=== PATIENT | male | born 1975 ===

== ENCOUNTER 2018-03-14 12:51 | Emergency (ER) | payer BC ==
[2018-03-14 13:43] VITALS: BP 135/71
--- NOTE | 2018-03-14 14:29 | UC ---
Shortness of Breath HPI - HPI Summary HPI Summary: Patient is a 42-year-old male that presents here with a three-day history of dyspepsia.. The last 2-3 nights he has been experiencing some chest tightness and decreased air movement. Rest night he woke marked shortness of breath. His mother is an ICU nurse and checked his pulse ox was 94%. He used his inhaler and was able to get back to sleep. In the past 6 weeks he has had severe seasonal allergic rhinitis. He is currently on his second course of steroids. He has had a history of GERD as well as a small hiatal hernia. He is not on any GI medicines at present. - History of Current Complaint Chief Complaint: UCChestPain Stated Complaint: CHEST/SOB COMPLAINT (ONLY IN PM) Time Seen by Provider: 03/14/18 13:46 Hx Obtained From: Patient Onset/Duration: Gradual Onset, Lasting Days Timing: Intermittent Episodes Lasting: - hours Current Severity: None Aggrevating Factors: Allergens - ?, Recumbent Position Alleviating Factors: Bronchodilators Associated Signs & Symptoms: Positive: Cough (Nonproductive) - Allergy/Home Medications Allergies/Adverse Reactions: Allergies Allergy/AdvReac Type Severity Reaction Status Date / Time ibuprofen Allergy See Comment Verified 03/14/18 13:27 Home Medications: Home Medications Albuterol HFA INHALER* [Ventolin HFA Inhaler*] 1 - 2 puff INH Q4H PRN 03/14/18 [ History Confirmed 03/14/18] diphenhydrAMINE HCl [Benadryl Allergy 25 MG CAP] 25 mg PO Q8H PRN 03/14/18 [ History Confirmed 03/14/18] predniSONE [Prednisone 5 MG TAB] 10 mg PO DAILY 03/14/18 [History Confirmed ] PMH/Surg Hx/FS Hx/Imm Hx Previously Healthy: Yes Respiratory History: Asthma - RAD GI/ History: Gastroesophageal Reflux - Surgical History Surgical History: Yes Surgery Procedure, Year, and Place: knee. sinus x 2 - Social History Alcohol Use: Occasionally Substance Use Type: None Smoking Status (MU): Never Smoked Tobacco Review of Systems Constitutional: Negative Skin: Negative Eyes: Negative ENT: Negative Respiratory: Shortness Of Breath, Cough Cardiovascular: Negative Gastrointestinal: Other - heartburn Genitourinary: Negative Motor: Negative Neurovascular: Negative Musculoskeletal: Negative Neurological: Negative Psychological: Negative Is Patient Immunocompromised?: No All Other Systems Reviewed And Are Negative: Yes Physical Exam Triage Information Reviewed: Yes Appearance: Well-Appearing, No Pain Distress, Well-Nourished Vital Signs: Initial Vital Signs Temp 98.3 F 03/14/18 13:31 Pulse 60 03/14/18 13:31 Resp 14 03/14/18 13:31 BP 135/71 03/14/18 13:31 Pulse Ox 100 03/14/18 13:31 Vital Signs Reviewed: Yes Eyes: Positive: Conjunctiva Clear ENT: Positive: Hearing grossly normal, TMs normal. Negative: Pharyngeal erythema, Nasal congestion, Nasal drainage, Tonsillar swelling, Tonsillar exudate, Trismus, Muffled voice, Hoarse voice, Dental tenderness, Sinus tenderness Neck: Positive: Supple, Nontender, No Lymphadenopathy Respiratory: Positive: Lungs clear, Normal breath sounds, No respiratory distress, No accessory muscle use Cardiovascular: Positive: RRR, No Murmur Abdomen Description: Positive: Nontender, No Organomegaly, Soft. Negative: CVA Tenderness (R), CVA Tenderness (L) Bowel Sounds: Positive: Present Musculoskeletal: Positive: ROM Intact, No Edema Neurological: Positive: Alert Psychological Exam: Normal Diagnostics - EKG Cardiac Rate: NL Cardiac Rhythm: Sinus: Normal Ectopy: None ST Segment: Normal Shortness of Breath Dx - Course Course Of Treatment: advised to F/U with GI and ENT when he gets back home - Differential Dx/Diagnosis Provider Diagnoses: dyspepsia. bronchospasm by history. ERNESTO Discharge - Sign-Out/Discharge Documenting (check all that apply): Patient Departure - Discharge Plan Condition: Stable Disposition: HOME Patient Education Materials: Indigestion (ED), Bronchospasm (ED) Referrals: No Primary Care Phys,NOPCP [Primary Care Provider] - Additional Instructions: I suggest you do the following mylanta 30 ML (2 tablespoons) every 2 hours while awake for 2-3 days use your inhaler 2 puffs at bedtime Recheck for worsening symptoms when you get home I suggest you see a GI specialist and an ENT - Billing Disposition and Condition Condition: STABLE Disposition: Home
== END 2018-03-14 14:36 | disposition home or self-care (01) ==
LOC: UCCORT 12:51
DX: R10.13 Epigastric pain (principal); J98.01 Acute bronchospasm; J30.2 Other seasonal allergic rhinitis; Z88.8 Allergy status to other drugs, medicaments and biological substances; J45.909 Unspecified asthma, uncomplicated
CPT/HCPCS: 93005; 99201; G0463